=== PATIENT | male | born 1970 | race African-American/Black ===

== ENCOUNTER 2017-05-15 21:15 | Emergency (ER) | payer OTHER ==
[~2017-05-15] VITALS: Ht 175.3 cm; Wt 79.0 kg
[2017-05-15 21:29] VITALS: BP 135/100
== END 2017-05-15 23:00 | disposition left against medical advice (07) ==
LOC: ER 21:40
DX: R07.9 Chest pain, unspecified (principal); Z53.21 Procedure and treatment not carried out due to patient leaving prior to being seen by health care provider